=== PATIENT | female | born 1935 | race Caucasian/White ===

== ENCOUNTER 2018-01-05 06:35 | Day surgery (SDC) | payer MEDICARE ==
[2018-01-03 14:20] VITALS: BMI 19.5
[2018-01-05] MEDS ORDERED: Propofol 10 mg/ml Inj (20 ML) ONE (08:14)
[2018-01-05] MEDS ORDERED: Lactated Ringer's 1,000 ML IV ONE ×2 (08:14→08:31)
--- NOTE | 2018-01-05 08:16 | CP.SDSHP ---
Same Day Surgery H & P - History Proposed Procedure: EGD Pre-Op Diagnosis: SEE NOTES - Previous Medical/Surgical History Cardiac: Hypertension Neuro: Backaches Misc: Other - Allergies Allergies: Allergies acetaminophen [From Percocet] Allergy (Verified 01/05/18 07:08) VOMITING oxycodone [From Percocet] Allergy (Verified 01/05/18 07:08) VOMITING seafoods Allergy (Uncoded 01/03/18 14:20) SWELLING - Physical Exam General Appearance: N Vital Signs: Vital Signs 01/05/18 07:15 Temperature 97.5 F L Pulse Rate 79 Respiratory 20 Rate Blood Pressure 149/46 L O2 Sat by Pulse 99 Oximetry Neuro: WNL Heart: Other Lungs: WNL GI: Other - {Optional Preform as Required} Breast: WNL Abdomen: Other Rectal: Other Integument: WNL : WNL Ortho: Other ENT: WNL - Impression Pt. Evaluated Today:Candidate for Anesthesia & Procedure: Yes - Date & Time Time: 08:16 Short Stay Discharge - Short Stay Discharge Admitting Diagnosis/Reason for Visit: ABDOMINAL PAIN, DYSPEPSIA Disposition: HOME/ ROUTINE
[2018-01-05] MEDS ORDERED: Belladonna-Phenobarbital PO STA (08:17)
[2018-01-05 08:53] VITALS: TEMP 97.8
[2018-01-05] MEDS ORDERED: Pantoprazole 40 mg EC Tab PO SCH (10:00)
[2018-01-05 11:21] VITALS: BP 137/60; PULSE 67; RESP 20; O2SAT 100
== END 2018-01-05 09:45 | disposition home or self-care (01) ==
LOC: C.ENDO 06:35
PROVIDERS: ATTEND Specialist
DX: R10.13 Epigastric pain (principal); K30 Functional dyspepsia; R10.84 Generalized abdominal pain; K21.0 Gastro-esophageal reflux disease with esophagitis; K44.9 Diaphragmatic hernia without obstruction or gangrene; I10 Essential (primary) hypertension
CPT/HCPCS: 43239; 88305; 88342; J2001; J2704; J7120

== ENCOUNTER 2018-01-10 08:30 | Day surgery (SDC) | payer MEDICARE ==
[2018-01-03 14:20] VITALS: BMI 19.5
--- NOTE | 2018-01-10 12:22 | CP.SDSHP ---
Same Day Surgery H & P - History Proposed Procedure: COLONSCOPY Pre-Op Diagnosis: SEE NOTES - Previous Medical/Surgical History Cardiac: Hypertension Neuro: Backaches, Other Misc: Other Pain: 4.Moderate Pain - Allergies Allergies: Allergies acetaminophen [From Percocet] Allergy (Verified 01/05/18 07:08) VOMITING oxycodone [From Percocet] Allergy (Verified 01/05/18 07:08) VOMITING seafoods Allergy (Uncoded 01/03/18 14:20) SWELLING - Physical Exam General Appearance: N Vital Signs: Vital Signs 01/10/18 09:00 Temperature 97.2 F L Pulse Rate 80 Respiratory 20 Rate Blood Pressure 118/71 O2 Sat by Pulse 99 Oximetry Mental Status: Alert & Oriented x3 Neuro: WNL Heart: Other Lungs: WNL GI: WNL - {Optional Preform as Required} Breast: WNL Abdomen: Other Rectal: Other Integument: WNL : WNL Ortho: Other ENT: WNL - Impression Pt. Evaluated Today:Candidate for Anesthesia & Procedure: Yes - Date & Time Time: 12:22 Short Stay Discharge - Short Stay Discharge Admitting Diagnosis/Reason for Visit: CHANGE IN BOWEL HABITS Disposition: HOME/ ROUTINE
[2018-01-10] MEDS ORDERED: Propofol 10 mg/ml Inj (20 ML) ONE (12:34)
[2018-01-10 13:04] VITALS: TEMP 98; O2SAT 100
[2018-01-10] MEDS ORDERED: Belladonna-Phenobarbital PO ONE (13:10)
[2018-01-10 13:42] VITALS: BP 147/56; PULSE 73; RESP 18
== END 2018-01-10 13:40 | disposition home or self-care (01) ==
LOC: C.ENDO 08:30
PROVIDERS: ATTEND Specialist
DX: D12.2 Benign neoplasm of ascending colon (principal); R63.4 Abnormal weight loss; K64.8 Other hemorrhoids; K64.4 Residual hemorrhoidal skin tags
CPT/HCPCS: 45380; 88305; 88313; 88342; J2704